=== PATIENT | male | born 1950 | race Two or more races ===

== ENCOUNTER 2020-12-03 10:24 | Inpatient (IN) | payer OTHER ==
[~2020-12-03] VITALS: Ht 165.1 cm; Wt 71.8 kg
[2020-12-03 11:46] LABS: Basophils # (auto) 0 10 ^3/uL (0-0.2); Basophils % (auto) 0.3 % (0.0-2.0); Eosinophils # (auto) 0.1 10 ^3/uL (0-0.8); Eosinophils % (auto) 1.6 % (0.0-7.0); Hematocrit 26.5 % (41.0-53.0); Hemoglobin 9.2 g/dL (13.5-17.5); Lymphocytes # (auto) 0.8 10 ^3/uL (0.4-5.4); Lymphocytes % (auto) 12.3 % (10.0-50.0); Mean Corpuscular Hemoglobin 30.7 pg (28.0-32.0); Mean Corpuscular Hgb Conc. 34.8 g/dL (32.0-36.0); Mean Corpuscular Volume 88.2 fL (80.0-100.0); Monocytes # (auto) 0.7 10 ^3/uL (0-1.3); Monocytes % (auto) 10.7 % (0.0-12.0); Neutrophils % (auto) 75.1 % (37.0-80.0); Platelet Count (auto) 94 10^3/uL (140-450); Red Blood Cells 3.01 10^6/uL (4.5-5.90); Red Cell Distribution Width 17.6 % (11.8-14.3); White Blood Cell 6.7 10^3/uL (4.4-10.8)
[2020-12-03 11:54] LABS: Albumin 2.7 g/dL (3.4-5.0); Anion Gap 10 (5-15); Blood Urea Nitrogen 49 mg/dL (7-18); Calcium 8.7 mg/dL (8.5-10.1); Carbon Dioxide 22 mmol/L (21-32); Chloride 106 mmol/L (98-107); Glucose 128 mg/dL (74-106); Magnesium 2.9 mg/dL (1.6-2.6); Potassium 4.4 mmol/L (3.5-5.1); Sodium 138 mmol/L (136-145)
[2020-12-03 12:05] LABS: Alanine Aminotransferase 34 U/L (16-61); Alkaline Phosphatase 105 U/L (45-117); Aspartate Aminotransferase 50 U/L (15-37); Bilirubin, Total 1.8 mg/dL (0.2-1.0); GFR African American 50 mL/min; GFR Non-African American 41 mL/min; Total Protein 4.9 g/dL (6.4-8.2)
[2020-12-03 12:07] LABS: INR 1.29 (0.9-1.15); Partial Thromboplastin Time 42.7 sec (23.0-31.2)
[2020-12-03 12:48] LABS: Urine Bacteria FEW /hpf (None Seen); Urine Blood Negative /uL (Negative); Urine Hyaline Cast MANY /lpf (0 - 2); Urine Specific Gravity 1.018 (1.001-1.035); Urine WBC 1 /hpf (0 - 3)
[2020-12-03] MEDS ORDERED: LORazepam 2MG/ML-1ML VIAL IV ONE (13:15)
[2020-12-03] MEDS ORDERED: NITROGLYCERIN 0.4 MG SL TAB SL PRN ×2 (16:00→17:45)
[2020-12-03] MEDS ORDERED: MORPHINE SULF INJ 2 MG/ML SYRINGE 1ML IV PRN ×3 (16:00→17:45)
[2020-12-03] MEDS ORDERED: ALBUMIN 25% 100 ML IV ONE (16:00)
[2020-12-03] MEDS ORDERED: LACTULOSE 20Gm/30ML SOLN PO ONE (16:45)
[2020-12-03] MEDS ORDERED: LACTULOSE 20Gm/30ML SOLN NG ONE (17:15)
[2020-12-03] MEDS ORDERED: PANTOPRAZOLE 40 MG/10 ML VIAL INJ IV ONE (17:15)
[2020-12-03] MEDS ORDERED: LACTULOSE 10g/15ml SOLN PR ONE (17:30)
[2020-12-03] MEDS ORDERED: PHYTONADIONE (VIT K)10 MG/ML 1ML VIAL SUBCUT ONE (17:30)
[2020-12-03] MEDS ORDERED: cefTRIAXone 1GM/50ML D5W 50 ML IV ONE (17:45)
[2020-12-03] MEDS ORDERED: phytonadione 5 MG in SODIUM CHL 0.9% 50 ML IV ONE (17:45)
[2020-12-03] MEDS ORDERED: DOCUSATE SOD 100 MG CAP PO PRN (17:45)
[2020-12-03] MEDS ORDERED: ALUM & MAG HYDROX-SIMETH LIQ(MAALOX) 30 ML PO PRN (17:45)
[2020-12-03] MEDS ORDERED: HYDROcodone-ACET 5/325MG TAB PO PRN (17:45)
[2020-12-03] MEDS ORDERED: MIDODRINE HCL 10 MG TAB PO ONE (17:45)
[2020-12-03] MEDS ORDERED: LORazepam 0.5 MG TAB PO PRN (17:45)
[2020-12-03] MEDS ORDERED: ONDANSETRON HCL 4 MG/2 ML VIAL IV PRN (17:45)
[2020-12-03] MEDS ORDERED: IPRATROPIUM BROM 0.5 MG/2.5ML INH SOL NEB SCH (18:00)
[2020-12-03] MEDS: LACTULOSE 20Gm/30ML SOLN PO SCH ×3 (18:00→20:50)
[2020-12-03] MEDS ORDERED: rifAMPin 300 MG CAP PO ONE (18:30)
[2020-12-03] MEDS ORDERED: IPRATROPIUM BROM 0.5 MG/2.5ML INH SOL NEB PRN (19:00)
[2020-12-03 19:40] VITALS: BP 108/74
[2020-12-03] MEDS ORDERED: rifAXIMin 550 MG TAB PO ONE (19:54)
[2020-12-03 20:11] LABS: Cholesterol 75 mg/dL (< 200); HDL Cholesterol 30 mg/dL (40-59); LDL Cholesterol 41 mg/dL (< 100); Triglycerides 61 mg/dL (< 150)
[2020-12-03 20:50] LABS: Amphetamine Screen, Urine NEGATIVE (NEGATIVE); Barbiturate Scree,Urine NEGATIVE (NEGATIVE); Benzodiazephine Screen, Urine NEGATIVE (NEGATIVE); Cannabinoid Screen, Urine NEGATIVE (NEGATIVE); Cocaine Screen, Urine NEGATIVE (NEGATIVE); Opiate Scree,Urine NEGATIVE (NEGATIVE); Phencyclidine Screen, Urine NEGATIVE (NEGATIVE)
[2020-12-03 21:50] VITALS: BP 110/57
[2020-12-03] MEDS ORDERED: rifAMPin 300 MG CAP PO SCH (22:00)
[2020-12-03] MEDS: ATORVASTATIN 20 MG TAB PO SCH (22:00)
[2020-12-03 22:05] VITALS: BP 103/57
[2020-12-04] VITALS (17 sets, daily range): BP systolic 72–117; BP diastolic 39–74
[2020-12-04] MEDS: ALBUMIN 25% 50 ML IV SCH ×3 (00:38→15:22)
[2020-12-04] MEDS: MIDODRINE HCL 10 MG TAB PO SCH ×3 (04:45→18:16)
[2020-12-04] MEDS: LACTULOSE 20Gm/30ML SOLN PO SCH ×14 (04:45→15:00)
[2020-12-04 07:56] LABS: Basophils # (auto) 0 10 ^3/uL (0-0.2); Basophils % (auto) 0.2 % (0.0-2.0); Eosinophils # (auto) 0 10 ^3/uL (0-0.8); Eosinophils % (auto) 0.1 % (0.0-7.0); Hematocrit 25.2 % (41.0-53.0); Hemoglobin 8.5 g/dL (13.5-17.5); Lymphocytes # (auto) 0.4 10 ^3/uL (0.4-5.4); Lymphocytes % (auto) 4.1 % (10.0-50.0); Mean Corpuscular Hemoglobin 30.2 pg (28.0-32.0); Mean Corpuscular Hgb Conc. 33.8 g/dL (32.0-36.0); Mean Corpuscular Volume 89.2 fL (80.0-100.0); Monocytes # (auto) 0.7 10 ^3/uL (0-1.3); Monocytes % (auto) 6.9 % (0.0-12.0); Neutrophils # (auto) 9.1 10 ^3/uL (1.6-8.6); Neutrophils % (auto) 88.7 % (37.0-80.0); Platelet Count (auto) 65 10^3/uL (140-450); Red Blood Cells 2.82 10^6/uL (4.5-5.90); Red Cell Distribution Width 17.8 % (11.8-14.3); White Blood Cell 10.3 10^3/uL (4.4-10.8)
[2020-12-04 08:16] LABS: INR 1.35 (0.9-1.15); Partial Thromboplastin Time 41.5 sec (23.0-31.2)
[2020-12-04 08:37] LABS: Potassium 4.4 mmol/L (3.5-5.1)
[2020-12-04 09:03] LABS: Albumin 2.9 g/dL (3.4-5.0); BUN/Creatinine Ratio 24.8; Bilirubin, Total 2.7 mg/dL (0.2-1.0); Calcium 8.4 mg/dL (8.5-10.1); Magnesium 2.9 mg/dL (1.6-2.6); Phosphorus 3.8 mg/dL (2.5-4.90); Total Protein 4.8 g/dL (6.4-8.2); Uric Acid 8.5 mg/dL (3.5-7.2)
[2020-12-04] MEDS ORDERED: SODIUM CHLORIDE 0.9% 500 ML IV ONE (09:15)
[2020-12-04] MEDS: cefTRIAXone 1GM/50ML D5W 50 ML IV SCH (09:18)
[2020-12-04] MEDS: LACTULOSE 10g/15ml SOLN PR SCH ×4 (10:00→23:25)
[2020-12-04] MEDS: ESOMEPRAZOLE 40 MG/5ml VIAL INJ IV SCH ×2 (10:00→22:28)
[2020-12-04] MEDS: rifAXIMin 550 MG TAB PO SCH ×2 (10:00→22:29)
[2020-12-04] MEDS ORDERED: LORazepam 2MG/ML-1ML VIAL IV PRN (13:15)
[2020-12-04] MEDS ORDERED: LACTULOSE 10g/15ml SOLN PR SCH (18:00)
[2020-12-04] MEDS: ATORVASTATIN 20 MG TAB PO SCH (22:29)
[2020-12-04] MEDS: LORazepam 2MG/ML-1ML VIAL IV PRN (23:27)
[2020-12-05] MEDS: LORazepam 2MG/ML-1ML VIAL IV PRN (04:01)
[2020-12-05 05:00] VITALS: BP 124/66
[2020-12-05] MEDS: LACTULOSE 10g/15ml SOLN PR SCH (05:24)
[2020-12-05] MEDS: MIDODRINE HCL 10 MG TAB PO SCH ×3 (05:31→17:11)
[2020-12-05 06:05] LABS: Basophils # (auto) 0 10 ^3/uL (0-0.2); Basophils % (auto) 0.2 % (0.0-2.0); Eosinophils # (auto) 0 10 ^3/uL (0-0.8); Eosinophils % (auto) 0.3 % (0.0-7.0); Hematocrit 26.6 % (41.0-53.0); Hemoglobin 8.8 g/dL (13.5-17.5); Lymphocytes # (auto) 1.1 10 ^3/uL (0.4-5.4); Lymphocytes % (auto) 6.5 % (10.0-50.0); Mean Corpuscular Hemoglobin 29.6 pg (28.0-32.0); Mean Corpuscular Hgb Conc. 33.3 g/dL (32.0-36.0); Monocytes # (auto) 1.3 10 ^3/uL (0-1.3); Monocytes % (auto) 8.2 % (0.0-12.0); Neutrophils % (auto) 84.8 % (37.0-80.0); Platelet Count (auto) 84 10^3/uL (140-450); Red Blood Cells 2.99 10^6/uL (4.5-5.90); Red Cell Distribution Width 17.9 % (11.8-14.3); White Blood Cell 16.5 10^3/uL (4.4-10.8)
[2020-12-05 06:35] LABS: BUN/Creatinine Ratio 25.2; Bilirubin, Total 3.2 mg/dL (0.2-1.0); Calcium 8.4 mg/dL (8.5-10.1); Total Protein 4.9 g/dL (6.4-8.2)
[2020-12-05] MEDS: ESOMEPRAZOLE 40 MG/5ml VIAL INJ IV SCH ×2 (08:38→22:23)
[2020-12-05] MEDS: rifAXIMin 550 MG TAB PO SCH ×2 (08:38→22:24)
[2020-12-05] MEDS: cefTRIAXone 1GM/50ML D5W 50 ML IV SCH (08:38)
[2020-12-05 09:00] VITALS: BP 112/62
[2020-12-05 12:56] VITALS: BP 120/71
[2020-12-05] MEDS ORDERED: DEXTROSE (50%) 50ML SYRG IV SCH (14:15)
[2020-12-05] MEDS: ACCU-CHEK COMFORT CURVE STRIP VI SCH ×2 (16:38→22:24)
[2020-12-05] MEDS: InsuLIN REG 1unit/0.01ml Soln (100units/ml) SC SCH ×2 (16:38→22:41)
[2020-12-05 16:43] VITALS: BP 115/67
[2020-12-05] MEDS: LACTULOSE 20Gm/30ML SOLN PO SCH ×2 (17:11→23:26)
[2020-12-05 22:00] VITALS: BP 110/70
[2020-12-05] MEDS: ATORVASTATIN 20 MG TAB PO SCH (22:24)
[2020-12-06 05:00] VITALS: BP 118/59
[2020-12-06] MEDS: MIDODRINE HCL 10 MG TAB PO SCH ×3 (05:46→17:48)
[2020-12-06] MEDS: LACTULOSE 20Gm/30ML SOLN PO SCH ×4 (05:46→23:54)
[2020-12-06] MEDS: ACCU-CHEK COMFORT CURVE STRIP VI SCH ×4 (06:30→21:52)
[2020-12-06] MEDS: InsuLIN REG 1unit/0.01ml Soln (100units/ml) SC SCH ×4 (06:43→21:52)
[2020-12-06 06:46] LABS: Basophils # (auto) 0 10 ^3/uL (0-0.2); Basophils % (auto) 0.1 % (0.0-2.0); Eosinophils # (auto) 0.2 10 ^3/uL (0-0.8); Eosinophils % (auto) 1.1 % (0.0-7.0); Hemoglobin 8.5 g/dL (13.5-17.5); Lymphocytes % (auto) 6.5 % (10.0-50.0); Mean Corpuscular Hemoglobin 30.2 pg (28.0-32.0); Mean Corpuscular Volume 88.8 fL (80.0-100.0); Monocytes # (auto) 1.5 10 ^3/uL (0-1.3); Monocytes % (auto) 9.8 % (0.0-12.0); Neutrophils # (auto) 12.7 10 ^3/uL (1.6-8.6); Neutrophils % (auto) 82.5 % (37.0-80.0); Platelet Count (auto) 80 10^3/uL (140-450); Red Blood Cells 2.81 10^6/uL (4.5-5.90); Red Cell Distribution Width 17.7 % (11.8-14.3); White Blood Cell 15.4 10^3/uL (4.4-10.8)
[2020-12-06 07:02] LABS: Albumin 2.7 g/dL (3.4-5.0); Calcium 8.2 mg/dL (8.5-10.1); Potassium 3.9 mmol/L (3.5-5.1)
[2020-12-06 07:06] LABS: BUN/Creatinine Ratio 27.2; Bilirubin, Total 2.3 mg/dL (0.2-1.0); Total Protein 4.9 g/dL (6.4-8.2)
[2020-12-06 09:00] VITALS: BP 122/66
[2020-12-06] MEDS: cefTRIAXone 1GM/50ML D5W 50 ML IV SCH (09:25)
[2020-12-06] MEDS ORDERED: HYDROcodone-ACET 5/325MG TAB PO PRN (09:30)
[2020-12-06] MEDS: ESOMEPRAZOLE 40 MG/5ml VIAL INJ IV SCH ×2 (09:47→21:16)
[2020-12-06 12:04] LABS: Hepatitis A Ab IgM Negative; Hepatitis B Core IgM Negative; Hepatitis B Surface Antigen Negative (Negative)
[2020-12-06 12:05] LABS: Hepatitis C Antibody Negative (Negative)
[2020-12-06 13:00] VITALS: BP 108/66
[2020-12-06] MEDS: rifAXIMin 550 MG TAB PO SCH ×2 (13:18→21:16)
[2020-12-06 17:10] VITALS: BP 125/67
[2020-12-06] MEDS: ATORVASTATIN 20 MG TAB PO SCH (21:15)
[2020-12-06 22:21] VITALS: BP 122/65
[2020-12-07 04:54] VITALS: BP 122/65
[2020-12-07] MEDS: MIDODRINE HCL 10 MG TAB PO SCH ×2 (05:35→11:58)
[2020-12-07] MEDS: LACTULOSE 20Gm/30ML SOLN PO SCH ×2 (05:36→11:58)
[2020-12-07 05:47] VITALS: BP 112/85
[2020-12-07 06:08] LABS: Basophils # (auto) 0 10 ^3/uL (0-0.2); Eosinophils # (auto) 0.3 10 ^3/uL (0-0.8); Hemoglobin 8.4 g/dL (13.5-17.5); Monocytes # (auto) 1.1 10 ^3/uL (0-1.3); Neutrophils % (auto) 80.8 % (37.0-80.0)
[2020-12-07 06:12] LABS: Basophils % (auto) 0.2 % (0.0-2.0); Hematocrit 24.8 % (41.0-53.0); Lymphocytes % (auto) 8.1 % (10.0-50.0); Mean Corpuscular Hemoglobin 29.8 pg (28.0-32.0); Mean Corpuscular Hgb Conc. 33.7 g/dL (32.0-36.0); Mean Corpuscular Volume 88.4 fL (80.0-100.0); Monocytes % (auto) 8.9 % (0.0-12.0); Neutrophils # (auto) 10.2 10 ^3/uL (1.6-8.6); Platelet Count (auto) 74 10^3/uL (140-450); Red Blood Cells 2.81 10^6/uL (4.5-5.90); Red Cell Distribution Width 17.8 % (11.8-14.3); White Blood Cell 12.6 10^3/uL (4.4-10.8)
[2020-12-07] MEDS: ACCU-CHEK COMFORT CURVE STRIP VI SCH ×2 (06:22→11:55)
[2020-12-07 06:26] LABS: Potassium 3.6 mmol/L (3.5-5.1)
[2020-12-07] MEDS: InsuLIN REG 1unit/0.01ml Soln (100units/ml) SC SCH ×2 (06:26→11:57)
[2020-12-07 06:36] LABS: BUN/Creatinine Ratio 27.4
[2020-12-07 09:00] VITALS: BP 115/67
[2020-12-07] MEDS: cefTRIAXone 1GM/50ML D5W 50 ML IV SCH (10:14)
[2020-12-07] MEDS: rifAXIMin 550 MG TAB PO SCH (10:16)
[2020-12-07] MEDS: ESOMEPRAZOLE 40 MG/5ml VIAL INJ IV SCH (10:23)
[2020-12-07 13:00] VITALS: BP 117/64
== END 2020-12-07 15:20 | disposition hospice, home (50) | DRG 441 ==
LOC: ER 10:24 → EDBD 10:24 → TELE 16:00 → TELE-WESTW 23:07
PROVIDERS: ADMIT Hospitalist; ATTEND Internal Medicine
PROC: 30233K1 Transfusion of Nonautologous Frozen Plasma into Peripheral Vein, Percutaneous Approach (ICD-10-PCS; 2020-12-03)
PROC: 05HB33Z Insertion of Infusion Device into Right Basilic Vein, Percutaneous Approach (ICD-10-PCS; 2020-12-03)
PROC: B54MZZA Ultrasonography of Right Upper Extremity Veins, Guidance (ICD-10-PCS; 2020-12-03)
PROC: 0W9G3ZZ Drainage of Peritoneal Cavity, Percutaneous Approach (ICD-10-PCS; principal; 2020-12-06)
DX: K72.00 Acute and subacute hepatic failure without coma (principal); K76.7 Hepatorenal syndrome; E43 Unspecified severe protein-calorie malnutrition; J18.9 Pneumonia, unspecified organism; K65.2 Spontaneous bacterial peritonitis; N39.0 Urinary tract infection, site not specified; K76.6 Portal hypertension; R18.8 Other ascites; I85.10 Secondary esophageal varices without bleeding; I42.9 Cardiomyopathy, unspecified; D68.4 Acquired coagulation factor deficiency; J98.11 Atelectasis; E72.20 Disorder of urea cycle metabolism, unspecified; N17.9 Acute kidney failure, unspecified; K74.60 Unspecified cirrhosis of liver; I95.9 Hypotension, unspecified; N18.31 Chronic kidney disease, stage 3a; K21.9 Gastro-esophageal reflux disease without esophagitis; D63.8 Anemia in other chronic diseases classified elsewhere; F29 Unspecified psychosis not due to a substance or known physiological condition; E11.22 Type 2 diabetes mellitus with diabetic chronic kidney disease; I50.9 Heart failure, unspecified; Z20.822 Contact with and (suspected) exposure to COVID-19; I86.4 Gastric varices; D69.6 Thrombocytopenia, unspecified; K31.89 Other diseases of stomach and duodenum; Z51.5 Encounter for palliative care; Z87.891 Personal history of nicotine dependence; Z68.26 Body mass index [BMI] 26.0-26.9, adult
CPT/HCPCS: 36415; 36430; 36600; 51702; 70450; 71045; 74176; 76700; 76942; 80048; 80053; 80061; 80074; 80307; 81001; 82140; 82270; 82306; 82805; 82962; 83036; 83735; 83880; 84100; 84443; 84484; 84550; 85025; 85610; 85730; 86850; 86900; 86901; 87040; 87081; 87086; 87426; 92610; 93005; 93306; 96365; 96367; 96375; 97163; 99291; C9113; G0378; J0696; J1815; J2405; J3430; P9047